=== PATIENT | female | born 1970 | race Hispanic/Latino ===

== ENCOUNTER 2019-02-12 10:51 | Emergency (ER) | payer OTHER ==
[2019-02-12] MEDS ORDERED: CATAPRES PO ONE (11:26)
[2019-02-12] MEDS ORDERED: TORADOL IV ONE (11:26)
[2019-02-12] MEDS ORDERED: PEPCID IV ONE (11:26)
--- NOTE | 2019-02-12 11:42 | Emergency Department Report ---
ED Headache HPI - General Chief Complaint: Headache Stated Complaint: HYPERTENSION/SWOLLEN L SIDE/HEADACHE Time Seen by Provider: 02/12/19 11:20 Source: patient Exam Limitations: no limitations - History of Present Illness Initial Comments: 48-year-old female with no significant past medical history presents to the Hospital complaining of headache 3 days. Headache is frontal, pounding, and intermittent and became more severe today. Last tested in intensity. Patient took Goody's powder prior to arrival with minimal improvement. She checked her blood pressure at [facility] and it was 166/101. Patient denies a history of hypertension and states her blood pressure was normal during her physical exam one year ago. She does report a family history. Patient complaining of i ntermittent left arm and leg swelling which improves with elevation. Mild blurred vision reported. She denies chest pain, shortness of breath, fever, neck pain, nausea, vomiting, or focal weakness. PMD: None Allergies/Adverse Reactions: Allergies shellfish derived Allergy (Verified 02/12/19 10:52) Swelling Home Medications: Ambulatory Orders Ibuprofen [Motrin] 800 mg PO Q8HR PRN #30 tablet 02/12/19 amLODIPine [Norvasc] 10 mg PO DAILY #30 tab 02/12/19 traMADol [Ultram 50 MG tab] 50 mg PO Q6HR PRN #14 tablet 02/12/19 ED Review of Systems ROS: Stated complaint: HYPERTENSION/SWOLLEN L SIDE/HEADACHE Other details as noted in HPI Comment: All other systems reviewed and negative ED Past Medical Hx - Past Medical History Previous Medical History?: No - Surgical History Additional Surgical History: "I forgot" - Social History Smoking Status: Never Smoker Substance Use Type: Alcohol - Medications Home Medications: Home Medications Medication Instructions Recorded Confirmed Last Taken Type Ibuprofen [Motrin] 800 mg PO Q8HR PRN #30 tablet 02/12/19 Unknown Rx amLODIPine [Norvasc] 10 mg PO DAILY #30 tab 02/12/19 Unknown Rx traMADol [Ultram 50 MG tab] 50 mg PO Q6HR PRN #14 tablet 02/12/19 Unknown Rx ED Physical Exam - General Limitations: No Limitations - Other Other exam information: General: No limitations, patient is alert in no acute distress Head exam: Atraumatic, normocephalic Eyes exam: Normal appearance, pupils equal reactive to light, extraocular movements intact. Erythema to the left conjunctiva medially without drainage. ENT: Moist mucous membrane, normal oropharynx Neck exam: Normal inspection, full range of motion, no meningismus nontender Respiratory exam: Clear to auscultation bilateral, no wheezes, rales, crackles Cardiovascular: Normal rate and rhythm, normal heart sounds Abdomen: Soft, nondistended, and nontender, with normal bowel sounds, no rebound, or guarding Extremity: Full range of motion normal inspection no deformity. No calf tenderness. Minimal trace edema to left leg with pressure Back: Normal Inspection, full range of motion, no tenderness Neurologic: Alert, oriented x3, cranial nerves intact, 5/5 upper and lower extremity strength. see NIHSS scale Psychiatric: normal affect, normal mood Skin: Warm, dry, intact ED Course Vital Signs 02/12/19 02/12/19 02/12/19 10:57 11:35 11:40 Temperature 97.8 F Pulse Rate 92 H Respiratory 20 Rate Blood Pressure 192/102 190/107 190/107 O2 Sat by Pulse 100 Oximetry 02/12/19 02/12/19 02/12/19 11:47 12:17 12:30 Temperature Pulse Rate 85 82 80 Respiratory 16 16 15 Rate Blood Pressure 190/107 160/98 156/95 O2 Sat by Pulse 96 97 Oximetry 02/12/19 12:45 Temperature Pulse Rate 78 Respiratory 15 Rate Blood Pressure O2 Sat by Pulse 96 Oximetry ED Medical Decision Making - Lab Data Result diagrams: 02/12/19 11:25 02/12/19 11:25 Lab Results 02/12/19 02/12/19 02/12/19 Range/Units 11:25 11:25 11:25 WBC 4.4 L (4.5-11.0) K/mm3 RBC 4.08 (3.65-5.03) M/mm3 Hgb 12.6 (10.1-14.3) gm/dl Hct 37.1 (30.3-42.9) % MCV 91 (79-97) fl MCH 31 (28-32) pg MCHC 34 (30-34) % RDW 12.8 L (13.2-15.2) % Plt Count 281 (140-440) K/mm3 Lymph % (Auto) 30.5 (13.4-35.0) % [place] % (Auto) 7.9 H (0.0-7.3) % Eos % (Auto) 1.0 (0.0-4.3) % Baso % (Auto) 1.0 (0.0-1.8) % Lymph # 1.3 (1.2-5.4) K/mm3 [place] # 0.3 (0.0-0.8) K/mm3 Eos # 0.0 (0.0-0.4) K/mm3 Baso # 0.0 (0.0-0.1) K/mm3 Seg Neutrophils % 59.6 (40.0-70.0) % Seg Neutrophils # 2.6 (1.8-7.7) K/mm3 Sodium 138 (137-145) mmol/L Potassium 4.8 (3.6-5.0) mmol/L Chloride 102.1 (98-107) mmol/L Carbon Dioxide 24 (22-30) mmol/L Anion Gap 17 mmol/L BUN 14 (7-17) mg/dL Creatinine 1.0 (0.7-1.2) mg/dL Estimated GFR 59 ml/min BUN/Creatinine Ratio 14 % Glucose 94 (65-100) mg/dL Calcium 9.3 (8.4-10.2) mg/dL HCG, Qual Negative (Negative) - Radiology Data Radiology results: report reviewed ct head: naf - Medical Decision Making CT unremarkable. Blood pressure improved with clonidine. Headache improved after blood pressure reduction and Toradol. They should be discharged meds for pain, hypertension, and PMD follow-up encouraged. - Differential Diagnosis hypertensive emergency, ICH, tissue headache, migraine, CVA Critical Care Time: No Critical care attestation.: If time is entered above; I have spent that time in minutes in the direct care of this critically ill patient, excluding procedure time. ED Disposition Clinical Impression: Hypertension, Headache Disposition: DC-01 TO HOME OR SELFCARE Is pt being admited?: No Does the pt Need Aspirin: No Condition: Stable Instructions: Hypertension (ED), Acute Headache (ED) Additional Instructions: Take the medication as prescribed. Follow up with your doctor or the clinic/doctor provided. Return if symptoms worsen as indicated by your discharge instructions Prescriptions: Ibuprofen [Motrin] 800 mg PO Q8HR PRN #30 tablet PRN Reason: Pain, Moderate (4-6) amLODIPine [Norvasc] 10 mg PO DAILY #30 tab traMADol [Ultram 50 MG tab] 50 mg PO Q6HR PRN #14 tablet PRN Reason: Pain Referrals: MARCELL BANKS MD [Primary Care Provider] - 3-5 Days REZA LOO MD [Staff Physician] - 3-5 Days Time of Disposition: 13:03 - Assessment Assessment Interval: Baseline - Level of Consciousness 1a. Level of Consciousness: alert/keenly responsive - LOC Questions 1b. LOC Questions: answers both correctly - LOC Command 1c. LOC Commands: performs tasks correctly - Best Gaze 2. Best Gaze: normal - Visual 3. Visual: no visual loss - Facial Palsy 4. Facial Palsy: normal symmetrical movement - Motor Arm 5a. Motor Arm Left: no drift 5b. Motor Arm Right: no drift - Motor Leg 6a. Motor Leg Left: no drift 6b. Motor Leg Right: no drift - Limb Ataxia 7. Limb Ataxia: absent - Sensory 8. Sensory: mild/moderate sensory loss (left arm and leg) - Best Language 9. Best Language: no aphasia - Dysarthria 10. Dysarthria: normal - Extinction and Inattention 11. Extinction/Inattention: no abnormality - Scoring Total Score: 1 Stroke Severity: Minor Stroke
[2019-02-12 11:43] LABS: Hematocrit 37.1 % (30.3-42.9); Hemoglobin 12.6 gm/dl (10.1-14.3); Lymphocytes # (Auto) 1.3 K/mm3 (1.2-5.4); Lymphocytes % (Auto) 30.5 % (13.4-35.0); Mean Corpuscular HGB Conc 34 % (30-34); Mean Corpuscular Volume 91 fl (79-97); Monocytes # (Auto) 0.3 K/mm3 (0.0-0.8); Monocytes % (Auto) 7.9 % (0.0-7.3); Platelet Count 281 K/mm3 (140-440); Red Blood Count 4.08 M/mm3 (3.65-5.03); Red Cell Distribution Width 12.8 % (13.2-15.2)
[2019-02-12 12:01] LABS: Calcium 9.3 mg/dL (8.4-10.2)
--- NOTE | 2019-02-12 12:24 | Cat Scan Report ---
PROCEDURE: CT HEAD/BRAIN WO CON TECHNIQUE: Multiple continuous axial images were obtained from the skull base to the vertex without administration of IV contrast. Reformatted sagittal and coronal images were available for review. HISTORY: castillo, htn, left body swelling and numbness COMPARISONS: None. FINDINGS: There is normal brain volume for the patient's age. There is normal peters-white differentiation. There is no parenchymal hemorrhage or extra-axial fluid collection. There is no mass or mass effect. There is no acute territorial infarct. The ventricles are midline. The subarachnoid spaces and basilar cis terns are clear. There is no skull fracture. The paranasal sinuses and mastoid air cells are clear. IMPRESSION: No acute intracranial abnormality. This document is electronically signed by Ketty Martinez MD., February 12 2019 12:22:38 PM ET
[2019-02-12 13:00] VITALS: BP 156/95
== END 2019-02-12 13:17 | disposition home or self-care (01) ==
LOC: ED 10:51
DX: I10 Essential (primary) hypertension (principal); H53.8 Other visual disturbances; R22.42 Localized swelling, mass and lump, left lower limb; Z91.013 Allergy to seafood
CPT/HCPCS: 36415; 70450; 80048; 84703; 85025; 96374; 96375; 99284; J1885

== ENCOUNTER 2022-07-12 02:56 | Emergency (ER) | payer OTHER ==
[2022-07-12 03:22] VITALS: BP 177/76
== END 2022-07-12 03:33 | disposition left against medical advice (07) ==
LOC: ED 02:56
DX: M54.2 Cervicalgia (principal); Z53.21 Procedure and treatment not carried out due to patient leaving prior to being seen by health care provider